=== PATIENT | male | born 1985 | race Caucasian/White ===

== ENCOUNTER 2017-06-08 00:17 | Emergency (ER) | payer OTHER ==
[~2017-06-08] VITALS: Ht 185.4 cm; Wt 122.7 kg
--- NOTE | 2017-06-08 00:21 | ED.REPORT ---
HPI-General Illness Date of Service Jun 08, 2017 ED Provider: Dr. Lloyd Pt is a healthy 32 y/o male presenting to the ED due to needle-stick injury which cocurred prior to arrival. 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 There was no bleeding. His vaccinations are up to date. Patient's phone number for contact: [phone] Source patient K number: [id number] Nursing Notes Stated Complaint: NEEDLE STICK Nursing Notes Reviewed: Yes (Docea Power, meds not reconciled) Allergies: Coded Allergies: Badin (Verified Allergy, Unknown, 06/08/17) Penicillins (Verified Allergy, Unknown, 06/08/17) General Time Seen by MD: 00:20 Chief Complaint Other (needle stick) Hx Obtained From: Patient Arrived By: Walk-in Sudden in Onset?: Yes Onset Occurred: Just prior to arrival Symptom Duration: Since onset Caused by: Accidental Severity: Current: No pain currently Severity: Maximum: No pain Recent Healthcare: No recent doctor visit, No recent hospitalization Similar Sx Previous: Yes Past Medical History Past Medical History Denies Hx needle stick injuries x4 Past Surgical History Tonsillectomy Smoking History Never Smoker Social History Alcohol Use: "Social" Drug Use: Denies drug use Ambulatory Status Independent Review of Systems + needle stick Full Review of Systems Hematologic: Reports Bleeding Complete sys rev & neg: except as marked. Physical Exam Vital Signs Vital Signs Date Time Temp Pulse Resp B/P Pulse Ox O2 Delivery O2 Flow Rate FiO2 06/08/17 01:23 90 18 127/80 98 Room Air 06/08/17 00:23 36.8 91 18 136/86 98 Room Air Initial VS: Reviewed, Vital signs normal Head / Eyes: Atraumatic, Normocephalic ENT: Mucous membranes moist, Conjunctiva normal, No scleral icterus Neck: Supple, Full range of motion Respiratory: Breath sounds normal, Clear to auscultation, No respiratory distress Cardiovascular: Regular rate & rhythm, Heart sounds normal, Intact distal pulses Abdomen / GI: Soft Extremities: Vascular intact, Neuro intact, No swelling Skin: Warm, Dry, No cyanosis Neurologic: Alert, Oriented, Nonfocal Psychiatric: Mood/affect normal, Behavior normal, Normal thought content General/Constitutional: Awake, Alert, No acute distress, Well appearing, Well developed, Well hydrated, Well nourished, Cooperative, Not toxic appearing Wrist / Hand: Atraumatic, Inspection NL, Full range of motion, No swelling, No erythema, Non-tender, No deformity, Neurologic intact, Vascular intact, No ligamentous injury, Tendon function NL, No compartment syndrome, No clubbing/ cyanosis, No edema No visible needle stick yamila Interpretation & Diagnostics Lab Results Interpretation Test 06/08/17 01:00 Lab Results Interpretation: Exposure panel pending Re-Eval/Medical Decision Med Decision/Clinical Course This is a 32-year-old male presents with a needle stick in the OR. The source patient is low risk, and the patient reports while he stuck the needle, sterile gloved it was a solid needle, and there was no actual blood draw but reports he felt a poke. He reports these up-to-date on tetanus, and hep B. He is generally healthy. Overall this is low risk for HIV hepatitis, so immediate post exposure prophylaxis is not recommended. And a rapid HIV testing is being performed along with a standard source panel labs. Rapid HIV on the source patient was negative Patient is being discharged to follow-up with employee health, and L&I papers were completed. Source of Hx: Old records Time of Eval: 00:49 Re-Evaluation/Progress Note: F/U instructions and RTER warnings given. All questions addressed. Differential Diagnosis: Negative: Abdominal pain, Diabetes mellitus, Drug dependence, Pneumonia Counseled Regarding: Diagnosis, Need for follow-up, When/why to return to ED Discharge & Departure Primary Impression: Needle stick injury Encounter type: initial encounter Qualified Code: W27.3XXA - Contact with needle (sewing), initial encounter Disposition: Home Discharge Condition All VS Reviewed: Yes Condition: Stable Additional Instructions: 1. We shari baseline labs today. You will need to follow up with the Employee [facility] nurse for post exposure counseling and test results. Call [phone] and leave a message. 2. Fortunately this exposure is low risk and post-exposure medications are not recommended at this time. Scribe Attestation Portions of this note were transcribed by Rafael Daniel. I, Dr. Lloyd personally performed the history, physical exam and medical decision-making; I reviewed and confirmed the accuracy of the information in the transcribed note. Carlos Lloyd MD Jun 08, 2017 00:21 RAFAEL DANIEL Jun 08, 2017 00:25
[2017-06-08 00:23] VITALS: BP 136/86; PULSE 91; RESP 18; O2SAT 98
[2017-06-08 01:23] VITALS: BP 127/80; PULSE 90; RESP 18; O2SAT 98
== END 2017-06-08 01:28 | disposition home or self-care (01) ==
LOC: SED 00:17
DX: S61.237A Puncture wound without foreign body of left little finger without damage to nail, initial encounter (principal); W27.3XXA Contact with needle (sewing), initial encounter; Y92.234 Operating room of hospital as the place of occurrence of the external cause; Y93.89 Activity, other specified; Y99.0 Civilian activity done for income or pay; J45.909 Unspecified asthma, uncomplicated; Z77.21 Contact with and (suspected) exposure to potentially hazardous body fluids; Z88.0 Allergy status to penicillin
CPT/HCPCS: 36415; 86706; 87340; 99283; G0433